=== PATIENT | male | born 1940 | race Native Hawaiian/Other Pacific Islander ===

== ENCOUNTER 2022-11-08 22:01 | Emergency (ER) | payer OTHER ==
[~2022-11-08] VITALS: Ht 160 cm; Wt 54.4 kg
[2022-11-08 22:01] VITALS: BP 149/64; TEMP 98.2
[2022-11-08 22:21] LABS: PLATELET COUNT 180 K/uL (142-355)
[2022-11-08 22:33] LABS: POTASSIUM 4.5 mmol/L (3.6-5.2)
[2022-11-09] MEDS ORDERED: DONEPEZIL HYDRO10 MG PO (06:30)
[2022-11-09] MEDS ORDERED: ASPIRIN81 M1 PO (06:31)
[2022-11-09] MEDS ORDERED: LIPITOR40 MG PO (06:32)
[2022-11-09] MEDS ORDERED: FERROUS SULF325 MG PO (06:33)
[2022-11-09] MEDS ORDERED: FOLI1TAB26 PO (06:33)
[2022-11-09] MEDS ORDERED: COZAAR25 MG PO (06:34)
[2022-11-09] MEDS ORDERED: MIRALAX17 GM PO (06:34)
[2022-11-09] MEDS ORDERED: MAGN400T4 PO (06:35)
[2022-11-09] MEDS ORDERED: MULTIVITAMIN1 TA1 PO (06:36)
[2022-11-09] MEDS ORDERED: METO50TA63 PO (06:36)
[2022-11-09] MEDS ORDERED: MEMA5TAB2 PO (06:37)
[2022-11-09] MEDS ORDERED: COLACE 2-IN-1 81 TAB PO (06:38)
[2022-11-09] MEDS ORDERED: MEMANTINE HCL PO (06:38)
[2022-11-09] MEDS ORDERED: BENZ1TAB43 PO (06:39)
[2022-11-09] MEDS ORDERED: GABA300C2 PO (06:40)
[2022-11-09] MEDS ORDERED: BUSPIRONE5 MG PO (06:40)
[2022-11-09] MEDS ORDERED: DRY EYE RELIEF OPTH (06:42)
[2022-11-09] MEDS ORDERED: BIOFREEZE TOP (06:43)
[2022-11-09] MEDS ORDERED: HYDR5TAB9 PO (06:44)
[2022-11-23] MEDS ORDERED: GABA300C2 PO (08:48)
[2022-11-23] MEDS ORDERED: ASPI81TA4 PO (08:48)
[2022-11-23] MEDS ORDERED: MEMA5TAB PO ×2 (08:48)
[2022-11-23] MEDS ORDERED: MAGNSUS68 PO (08:48)
[2022-11-23] MEDS ORDERED: CONGENTIN 1MG TAB PO (08:48)
[2022-11-23] MEDS ORDERED: Atorvastatin Calcium PO (08:48)
[2022-11-23] MEDS ORDERED: FOLI1TAB26 PO (08:48)
[2022-11-23] MEDS ORDERED: DONE5TAB PO (08:48)
[2022-11-23] MEDS ORDERED: METO50TA63 PO (08:48)
[2022-11-23] MEDS ORDERED: LOSA50TA PO (08:48)
[2022-11-23] MEDS ORDERED: ALBU90AE13 INH (08:48)
[2022-11-23] MEDS ORDERED: MAGN400T4 PO (08:48)
[2022-11-23] MEDS ORDERED: FERROUS SULF325 MG PO (08:48)
[2022-11-23] MEDS ORDERED: BUSP5TAB2 PO (08:48)
[2022-11-23] MEDS ORDERED: MIRALAX 17GM PAK PO (08:48)
== END 2022-11-08 23:55 ==
LOC: ED 22:01
PROVIDERS: Family Medicine
DX: Z04.6 Encounter for general psychiatric examination, requested by authority (principal); F29 Unspecified psychosis not due to a substance or known physiological condition; J44.9 Chronic obstructive pulmonary disease, unspecified; E78.00 Pure hypercholesterolemia, unspecified; I12.9 Hypertensive chronic kidney disease with stage 1 through stage 4 chronic kidney disease, or unspecified chronic kidney disease; N18.9 Chronic kidney disease, unspecified; Z20.822 Contact with and (suspected) exposure to COVID-19
CPT/HCPCS: 80053; 81002; 85027; 87635; 93005; 99283; U0003